=== PATIENT | female | born 1980 | race African-American/Black ===

== ENCOUNTER 2017-01-21 23:55 | Emergency (ER) | payer OTHER ==
[~2017-01-21 23:55] MED LIST: CIPRODEX OTIC7.5 ML OT; CLARINEX5 M1 PO; HYDRODIURIL 112.5 M1 PO; MEDROL4 M2 PO; MOTRIN 600 MG600 MG PO; NASONEX17 GM NASB; PEPCID20 M1 PO; PERCOCET 325 MG1 TA2 PO; TIZANIDINE HYDRO2 M1 PO; TRAZODONE50 MG PO; VISTARIL25 MG PO
--- NOTE | 2017-01-21 23:57 | ED NOSE COMPLAINT ---
History of Present Illness General Chief Complaint: Epistaxis/Nasal Foreign Body Stated Complaint: BIBA NOSE BLEEDING Source: patient Exam Limitations: no limitations Vital Signs & Intake/Output Vital Signs & Intake/Output Vital Signs Date Time Temp Pulse Resp B/P Pulse O2 O2 Flow FiO2 Ox Delivery Rate 01/228 100 Room Air 01/22 33 96.5 67 18 154/89 100 Room Air Allergies Coded Allergies: NO KNOWN ALLERGIES (01/22/17) Reconcile Medications Levonorgestrel-Ethin Estradiol (Aviane-28 Tablet) 0.1 MG-20 MCG TABLET 1 TAB PO DAILY BCP (Reported) TIZANIDINE HCL (Tizanidine Hydrochloride) 2 MG CAP 1 CAP PO DAILY MUSCLE SPASMS (Reported) Triage Nurses Notes Reviewed? yes Onset: Abrupt Duration: minute(s): Timing: single episode today Injury Environment: home Severity: moderate Modifying Factors: Improves With: rest. Associated Symptoms: "BLEEDING FROM MY RIGHT NOSE. tHERE WERE CLOTS." HPI: 36-year-old woman presents with bleeding from her right nose. She notes that she awoke to find herself bleeding. "There were clots coming out of my right nose." She notes that she has a nose ring. She reports having had a stuffy nose over the past few days. She denies fever sinus pressure headache chills. She is not on blood thinners. She denies trauma. Past History Travel History Traveled to [place] past 21 day No Medical History Any Pertinent Medical History? see below for history Cardiovascular: hypertension Surgical History Surgical History: non-contributory, N Psychosocial History What is your primary language Armenian Family History Hx Contributory? No Review of Systems Review of Systems Constitutional: Reports: no symptoms. EENTM: Reports: no symptoms. Respiratory: Reports: no symptoms. Cardiovascular: Reports: no symptoms. GI: Reports: no symptoms. Genitourinary: Reports: no symptoms. Musculoskeletal: Reports: no symptoms. Skin: Reports: no symptoms. Neurological/Psychological: Reports: no symptoms. Hematologic/Endocrine: Reports: no symptoms. Immunologic/Allergic: Reports: no symptoms. All Other Systems: Reviewed and Negative Physical Exam Physical Exam General Appearance: well developed/nourished, mild distress Head: atraumatic Eyes: Bilateral: normal appearance. Nose: right nare with small amount of bleeding at the site of her nose ring. Minimal ooze upon arrival. Mouth/Throat: normal mouth inspection, pharynx normal Neck: normal inspection, supple Cardiovascular/Respiratory: normal breath sounds, regular rate/rhythm Back: normal inspection Neurologic/Psych: awake, alert, oriented x 3, normal mood/affect Skin: intact, normal color, warm/dry Progress Differential Diagnoses I considered the following diagnoses in my evaluation of the patient: Anterior versus posterior nosebleed. Plan of Care: See below Initial ED EKG: none Departure Departure Disposition: HOME OR SELF CARE Condition: Stable Clinical Impression Primary Impression: Nosebleed Referrals: CONSUELO NEAL MD (PCP/Family) Departure Forms: Customer Survey General Discharge Information Comments Nose ring was removed. Bacitracin gauze was placed inside the right nare. Pressure was applied with 2 tongue depressors. After 20 minutes of pressure, the bleeding completely subsided. She reports feeling better. I discussed with her possible causes and referred her to ear nose and throat in the morning if her bleeding recurs.
[2017-01-22 00:33] VITALS: BP 154/89
[2017-01-22] MEDS ORDERED: AVIANE-28 TABL1 EACH PO (00:36)
== END 2017-01-22 01:41 ==
LOC: ERH 23:55
DX: R04.0 Epistaxis (principal)
CPT/HCPCS: 99282